=== PATIENT | male | born 1955 | race Caucasian/White ===

== ENCOUNTER 2017-01-18 19:47 | Observation (INO) | payer BC ==
[2017-01-18] MEDS ORDERED: ONDANSETRON 4 MG/2 ML VIAL IVP STA (20:37)
[2017-01-18] MEDS ORDERED: MORPHINE SULFATE 2 MG/ML SYRINGE IVP STA (20:37)
[2017-01-18] MEDS ORDERED: SODIUM CHLORIDE 0.9% 1,000 ML IV STA (20:37)
[2017-01-18] MEDS ORDERED: NITROGLYCERIN OINT 1 INCH/GM PACKET TOPICAL STA (20:37)
[2017-01-18 20:58] LABS: Basophils % (A) 0 %; CH 35.1; CHCM 34.5; Eosinophils # (A) 0.2 k/uL (0-0.7); Eosinophils % (A) 2 %; HDW 2.68; HGB 13.1 gm/dL (13.0-17.5); Luc # (Auto) 0.25; Luc % (Auto) 2; Lymphocytes # (A) 1.2 k/uL (1.0-4.8); Lymphocytes % (A) 11 %; MCH 34.2 pg (25.0-35.0); MCHC 33.6 g/dL (31.0-37.0); Macrocytosis Slight; Mean Platelet Volume 7.2; Monocytes # (A) 0.4 k/uL (0-1.0); Monocytes % (A) 4 %; Neutrophils # (A) 8.5 k/uL (1.3-7.7); Neutrophils % (A) 80 %; RBC 3.82 m/uL (4.30-5.90); RDW 12.6 % (11.5-15.5); WBC 10.6 k/uL (3.8-10.6); WBC (Perox) 11.08
[2017-01-18 21:06] LABS: Partial Thromboplastin Time 24.3 sec (22.0-30.0)
[2017-01-18 21:08] LABS: ALT 41 U/L (21-72); AST 22 U/L (17-59); Alkaline Phosphatase 73 U/L (38-126); Amylase 48 U/L (30-110); Anion Gap 12 mmol/L; Blood Urea Nitrogen 17 mg/dL (9-20); Calcium 9.6 mg/dL (8.4-10.2); Carbon Dioxide 23 mmol/L (22-30); Chloride 104 mmol/L (98-107); Glucose 136 mg/dL (74-99); Magnesium 2.1 mg/dL (1.6-2.3); Non-African American GFR(MDRD) >60 (>60 ml/min/1.73 sqM); Potassium 4.5 mmol/L (3.5-5.1); Sodium 139 mmol/L (137-145); Total Bilirubin 0.7 mg/dL (0.2-1.3); Total Protein 7.2 g/dL (6.3-8.2)
[2017-01-18 21:18] LABS: Creatine Kinase 104 U/L (55-170)
--- NOTE | 2017-01-18 21:19 | XR ---
EXAMINATION TYPE: XR chest 2V DATE OF EXAM: 01/18/2017 9:15 PM COMPARISON: NONE HISTORY: Chest pain TECHNIQUE: Frontal and lateral views of the chest are obtained. FINDINGS: Heart and mediastinum are normal. Lungs are clear. Diaphragm is normal. There are chest le ads. Bony thorax is intact. IMPRESSION: Normal chest
[2017-01-18 21:31] LABS: Creatine Kinase MB 1.6 ng/mL (0.0-2.4); Troponin I <0.012 ng/mL (0.000-0.034)
[2017-01-18] MEDS ORDERED: NITROGLYCERIN SL TABS 0.4 MG TAB SUBLINGUAL PRN (23:39)
[2017-01-18] MEDS ORDERED: HEPARIN SODIUM,PORCINE 5,000 UNIT/ML 1 ML VIAL IV ONE (23:39)
--- NOTE | 2017-01-18 23:39 | ED ---
Chest Pain HPI - General Chief Complaint: Chest Pain Stated Complaint: Abd Pain Time Seen by Provider: 01/18/17 19:58 Source: patient Mode of arrival: ambulatory Limitations: no limitations - History of Present Illness Initial Comments: Centered with a chest pain he was in the epigastric area and then he felt chest pain chest pressure he had a cold sweats this started today him a he had a bit of fresh this morning with the chest pain started around 5 PM on arrival to the ER his pain has resolved he said he had some medication given to him by EMS and that helped he denies any peripheral pleuritic component of the pain denies any fever no chills his family history is unremarkable for heart disease he denies any alcohol use only occasionally denies any tobacco use use regularly. Systems are as above except that it's negative - Related Data Home Medications Medication Instructions Recorded Confirmed Acetaminophen-Codeine 300-30mg 1 tab PO Q4H PRN 01/18/17 01/18/17 [Tylenol #3] Ranitidine HCl [Zantac] 75 mg PO DAILY PRN 01/18/17 01/18/17 Simvastatin [Zocor] 20 mg PO DAILY 01/18/17 01/18/17 Allergies Allergy/AdvReac Type Severity Reaction Status Date / Time amoxicillin AdvReac Itching Verified 01/18/17 20:53 Review of Systems ROS Statement: Those systems with pertinent positive or pertinent negative responses have been documented in the HPI. ROS Other: All systems not noted in ROS Statement are negative. Past Medical History Past Medical History: Hyperlipidemia, Hypertension History of Any Multi-Drug Resistant Organisms: None Reported Past Surgical History: Hernia Repair Past Psychological History: No Psychological Hx Reported Smoking Status: Never smoker Past Alcohol Use History: None Reported Past Drug Use History: None Reported General Exam - General Exam Comments Initial Comments: General: The patient is awake and alert, in no distress, and does not appear acutely ill. He does look pale Skin: Skin is warm and dry and no rashes or lesions are noted. Eye: Pupils are equal, round and reactive to light, extra-ocular movements are intact; there is normal conjunctiva bilaterally. Ears, nose, mouth and throat: There are moist mucous membranes and no oral lesions. Neck: The neck is supple, there is no tenderness or JVD. Cardiovascular: There is a regular rate and rhythm. No murmur, rub or gallop is appreciated. Respiratory: To auscultation bilateral, no wheezing no rhonchi no distress respiratory wesley noticed Gastrointestinal: Soft, non-distended, non-tender abdomen without masses or organomegaly noted. There is no rebound or guarding present. Bowel sounds are unremarkable. Back: There is no tenderness to palpation in the midline. There is no obvious deformity. Musculoskeletal: Normal ROM, no tenderness, There is no pedal edema. There is no calf tenderness or swelling. No cords were appreciated. Neurological: CN II-XII intact, Cranial nerves III through XII are intact. There are no obvious motor or sensory deficits. Coordination appears grossly intact. Speech is normal. Psychiatric: Cooperative, appropriate mood & affect, normal judgment. Limitations: no limitations Course Vital Signs 01/18/17 01/18/17 01/18/17 19:48 20:57 21:50 Temperature 97.5 F L 97.9 F Pulse Rate 74 64 74 Respiratory 18 18 18 Rate Blood Pressure 187/92 161/97 157/90 O2 Sat by Pulse 100 99 100 Oximetry 01/18/17 22:00 Temperature Pulse Rate 68 Respiratory 16 Rate Blood Pressure 152/83 O2 Sat by Pulse 99 Oximetry Him EKG shows ventricular rate is 67 MI interval is 162 QRS duration is 88 QT/ QTc is 420/443 notice a T-wave inversion in leads free no ST elevation or ST depression noticed in the other leads Critical Care Time Total Critical Care Time: 35 Critical Care Time: Considering his age and numb risk factors he was watched in the ER though his troponin chest x-ray looks unremarkable considering his age I plan to put him in the hospital for serial cardiac markers his blood pressure was quite elevated and this is also had some increased risk factors once blood pressure is better when heparinize him, will consult cardiology for further evaluation and management was discussed with the patient and he is agreeable to the Disposition Clinical Impression: Chest pain, Hypertension Disposition: ADMITTED IP TO THIS HOSP Condition: Good
[2017-01-18] MEDS ORDERED: FAMOTIDINE 20 MG TAB PO PRN (23:43)
[2017-01-18] MEDS ORDERED: Acetaminophen-Codeine 300-30mg TAB PO PRN (23:43)
[2017-01-18] MEDS ORDERED: HEPARIN SODIUM,PORCINE/D5W PMX 25,000 UNIT in DEXTROSE/WATER 1 500ML.BAG IV SCH (23:45)
[2017-01-19 02:36] LABS: Creatine Kinase 277 U/L (55-170)
[2017-01-19 02:49] LABS: Creatine Kinase MB 1.6 ng/mL (0.0-2.4); Troponin I <0.012 ng/mL (0.000-0.034)
[2017-01-19 08:34] LABS: Cholesterol 151 mg/dL (<200); HDL Cholesterol 35 mg/dL (40-60); Triglycerides 148 mg/dL (<150)
[2017-01-19 08:57] LABS: Creatine Kinase 63 U/L (55-170)
[2017-01-19] MEDS ORDERED: ATORVASTATIN 80 MG TAB PO SCH (09:00)
[2017-01-19] MEDS ORDERED: ASPIRIN 325 MG TAB PO SCH (09:00)
[2017-01-19 09:08] LABS: Creatine Kinase MB 0.9 ng/mL (0.0-2.4); Troponin I <0.012 ng/mL (0.000-0.034)
--- NOTE | 2017-01-19 09:24 | P.CRDCN ---
History of Present Illness Consult date: 01/19/17 Chief complaint: Chest pain History of present illness: This is a pleasant 61-year-old gentleman with a past medical history significant for dyslipidemia presented to the emergency room complaining of chest discomfort. He was in his usual state of health until yesterday when he woke up complaining of pain in the epigastric area then started experiencing chest pressure associated with cold sweat without any shortness of breath or dizziness or lightheadedness or nausea or syncope. The EKG showed sinus rhythm without any significant ischemic changes. The cardiac enzymes were checked and came in to be unremarkable. He is not aware of any prior history of coronary artery disease and never seen any cyber policy and strategy planner in the past. The patient does not smoke or drink alcohol. Past Medical History Past Medical History: GERD/Reflux, Hyperlipidemia, Hypertension History of Any Multi-Drug Resistant Organisms: None Reported Past Surgical History: Hernia Repair Additional Past Surgical History / Comment(s): colonoscopy-12 years ago, inguinal hernia repair x2 Past Anesthesia/Blood Transfusion Reactions: Previous Problems w/ Anesthesia, Postoperative Nausea & Vomiting (PONV) Additional Past Anesthesia/Blood Transfusion Reaction / Comment(s): difficult coming out Past Psychological History: No Psychological Hx Reported Smoking Status: Never smoker Past Alcohol Use History: None Reported Past Drug Use History: None Reported - Past Family History Mother Family Medical History: Diabetes Mellitus Father Family Medical History: Dementia, Hyperlipidemia Medications and Allergies Home Medications Medication Instructions Recorded Confirmed Type Acetaminophen-Codeine 300-30mg 1 tab PO Q4H PRN 01/18/17 01/19/17 History [Tylenol #3] Ranitidine HCl [Zantac] 75 mg PO DAILY PRN 01/18/17 01/19/17 History Simvastatin [Zocor] 20 mg PO DAILY 01/18/17 01/19/17 History Allergies Allergy/AdvReac Type Severity Reaction Status Date / Time amoxicillin AdvReac Itching Verified 01/19/17 01:14 Physical Exam Vitals: Vital Signs Temp Pulse Pulse Resp BP BP Pulse Ox 01/19/17 07:37 99.2 F 77 18 107/53 94 L 01/19/17 04:00 98.9 F 81 16 106/57 92 L 01/19/17 00:59 98.5 F 68 16 127/67 96 01/19/17 00:18 67 16 111/52 98 Intake and Output 01/18/17 01/19/17 01/19/17 22:59 06:59 14:59 Intake Total 960 Balance 960 Intake: Intake, IV Titration 960 Amount Heparin Sodium,Porcine/ 160 D5w Pmx 25,000 unit In Dextrose/Water 1 500ml. bag @ 10.5 UNITS/KG/HR 20 mls/hr IV .Q24H JAMI Rx#: [id number] Sodium Chloride 0.9% 1, 800 000 ml @ 100 mls/hr IV . Q10H STA Rx#:[id number] Other: Voiding Method Toilet # Voids 1 Weight 97.8 kg - Constitutional General appearance: no acute distress - Respiratory Respiratory: bilateral: CTA - Cardiovascular Rhythm: regular Heart sounds: normal: S1, S2 Results 01/18/17 20:20 01/18/17 20:20 Cardiac Enzymes 01/19/17 01/19/17 Range/Units 02:02 07:32 CK-MB (CK-2) 1.6 0.9 (0.0-2.4) ng/mL Troponin I <0.012 <0.012 (0.000-0.034) ng/mL Coagulation 01/19/17 Range/Units 07:32 APTT 26.5 (22.0-30.0) sec Lipids 01/19/17 Range/Units 07:32 Triglycerides 148 (<150) mg/dL Cholesterol 151 (<200) mg/dL HDL Cholesterol 35 L (40-60) mg/dL Current Medications Generic Name Dose Route Start Last Admin Trade Name Freq PRN Reason Stop Dose Admin Acetaminophen/Codeine Phosphate 1 each 01/18/17 23:43 Tylenol #3 PO Q4H PRN Pain Aspirin 325 mg 01/19/17 09:00 Aspirin PO DAILY [facility] Atorvastatin Calcium 80 mg 01/19/17 09:00 Lipitor PO DAILY [facility] Famotidine 20 mg 01/18/17 23:43 Pepcid PO DAILY PRN Heartburn Heparin Sodium/Dextrose 25,000 500 mls @ 20 mls/hr 01/18/17 23:45 01/18/17 23 :58 unit/ IV Solution IV 10.49 units/kg/hr .Q24H JAMI 20 mls/hr Protocol Administration 10.5 UNITS/KG/HR Nitroglycerin 0.4 mg 01/18/17 23:39 Nitrostat SUBLINGUAL Q5M PRN Chest Pain Intake and Output 01/18/17 01/19/17 01/19/17 22:59 06:59 14:59 Intake Total 960 Balance 960 Intake: Intake, IV Titration 960 Amount Heparin Sodium,Porcine/ 160 D5w Pmx 25,000 unit In Dextrose/Water 1 500ml. bag @ 10.5 UNITS/KG/HR 20 mls/hr IV .Q24H JAMI Rx#: [id number] Sodium Chloride 0.9% 1, 800 000 ml @ 100 mls/hr IV . Q10H STA Rx#:[id number] Other: Voiding Method Toilet # Voids 1 Weight 97.8 kg Assessment and Plan Plan: Assessment #1 chest discomfort #2 dyslipidemia Plan #1 the patient was ruled out for acute coronary event #2 proceeding with a stress test
[2017-01-19 11:34] VITALS: BP 103/62; PULSE 81; RESP 16; TEMP 99.3
--- NOTE | 2017-01-19 12:43 | P.HPIM ---
History of Present Illness H&P Date: 01/19/17 Chief Complaint: Chest discomfort The is a medical H&P and discharge summary combined: Patient is a 61-year-old male, patient of Dr. Nadeem Youngblood in the outpatient setting, with medical history significant for GERD, hyperlipidemia, and hypertension. Patient states he was recently treated for a dental abscess with tooth extraction and finished amoxicillin 2 days ago. Patient states he was taken a nap and woke up with epigastric discomfort. Patient denies eating food recently prior to laying down. Patient states he took some Zantac without relief. Patient reports that the epigastric pain then started to feel like a pressure that radiated to his back associated with some nausea and cold sweats. Patient denies similar symptoms in past. No history of fevers, recent sick contacts, vomiting, shortness of breath, abdominal pain, urinary discomfort, constipation or diarrhea. No history of leg swelling. Patient does state that he noticed a generalized rash after finished amoxicillin and didn't take his last antibiotic pill yesterday. Patient states that it was itching but currently denies itching. Chest x-ray with no acute cardiopulmonary process. EKG without ischemic changes. Troponins negative 3. Afebrile. No evidence of leukocytosis. Patient was treated with morphine and nitroglycerin paste and started on IV heparin with admission to observation unit with consult to cardiology. Upon examination, patient denies chills, fevers, nausea, vomiting , chest pain, lightheadedness, epigastric discomfort, or abdominal pain. Patient is currently scheduled for a stress test. Past Medical History Past Medical History: GERD/Reflux, Hyperlipidemia, Hypertension Additional Past Medical History / Comment(s): Dental abscess to tooth #19 treated with amoxicillin and subsequent dental extraction in December 2016 History of Any Multi-Drug Resistant Organisms: None Reported Past Surgical History: Hernia Repair Additional Past Surgical History / Comment(s): colonoscopy-12 years ago, inguinal hernia repair x2 Past Anesthesia/Blood Transfusion Reactions: Previous Problems w/ Anesthesia, Postoperative Nausea & Vomiting (PONV) Additional Past Anesthesia/Blood Transfusion Reaction / Comment(s): difficult coming out Past Psychological History: No Psychological Hx Reported Smoking Status: Never smoker Past Alcohol Use History: None Reported Past Drug Use History: None Reported - Past Family History Mother Family Medical History: Diabetes Mellitus Father Family Medical History: Dementia, Hyperlipidemia Medications and Allergies Home Medications Medication Instructions Recorded Confirmed Type Acetaminophen-Codeine 300-30mg 1 tab PO Q4H PRN 01/18/17 01/19/17 History [Tylenol #3] Ranitidine HCl [Zantac] 75 mg PO DAILY PRN 01/18/17 01/19/17 History Simvastatin [Zocor] 20 mg PO DAILY 01/18/17 01/19/17 History Allergies Allergy/AdvReac Type Severity Reaction Status Date / Time amoxicillin AdvReac Itching Verified 01/19/17 01:14 Physical Exam Vitals: Vital Signs Temp Pulse Pulse Resp BP BP Pulse Ox 01/19/17 11:33 99.3 F 81 16 103/62 95 01/19/17 07:37 99.2 F 77 18 107/53 94 L 01/19/17 04:00 98.9 F 81 16 106/57 92 L 01/19/17 00:59 98.5 F 68 16 127/67 96 01/19/17 00:18 67 16 111/52 98 Intake and Output 01/18/17 01/19/17 01/19/17 22:59 06:59 14:59 Intake Total 960 Balance 960 Intake: Intake, IV Titration 960 Amount Heparin Sodium,Porcine/ 160 D5w Pmx 25,000 unit In Dextrose/Water 1 500ml. bag @ 10.5 UNITS/KG/HR 20 mls/hr IV .Q24H JAMI Rx#: [id number] Sodium Chloride 0.9% 1, 800 000 ml @ 100 mls/hr IV . Q10H STA Rx#:[id number] Other: Voiding Method Toilet # Voids 1 Weight 97.8 kg GENERAL: Pt awake and alert, well-appearing, well-nourished, and in no acute distress. HEAD: Atraumatic, normocephalic. EYES: Pupils equal, round, and reactive to light, extraocular movements intact, sclera anicteric, conjunctiva are normal. ENT: Moist mucous membranes. Tongue smooth, pink, no lesions, protrudes in midline. NECK:Normal range of motion, supple without lymphadenopathy or JVD. LUNGS: Breath sounds clear to auscultation bilaterally. No wheezes, rales, or rhonchi. HEART: Heart S1, S2, no S3 or S4. Regular rate and rhythm. No murmurs, rubs or gallops. ABDOMEN: Soft, obese, nontender, nondistended, normoactive bowel sounds. No guarding, no rebound. No masses or organomegaly appreciated. EXTREMITIES: 2+ peripheral pulses. No edema, clubbing or cyanosis. No calf tenderness. NEUROLOGICAL: Pt oriented x 3. Cranial nerves II through XII grossly intact. Strength and sensation grossly intact. PSYCH: Normal mood, normal affect. SKIN: Warm, dry, intact. Normal turgor. Generalized papular rash noted. Results CBC & Chem 7: 01/18/17 20:20 01/18/17 20:20 Labs: Abnormal Lab Results - Last 24 Hours (Table) 01/19/17 01/19/17 Range/Units 02:02 07:32 Total Creatine Kinase 277 H (55-170) U/L HDL Cholesterol 35 L (40-60) mg/dL Chest x-ray: report reviewed Thrombosis Risk Factor Assmnt - DVT/VTE Prophylaxis DVT/VTE Prophylaxis: Low risk, early ambulation encouraged - Choose All That Apply Each Factor Represents 1 point: Obesity (BMI >25) Each Risk Factor Represents 2 Points: Age 61-74 years Thrombosis Risk Factor Assessment Total Risk Factor Score: 3 Thrombosis Risk Factor Assessment Level: Moderate Risk Assessment and Plan Plan: Impression and plan: 1. Chest discomfort, present on admission. EKG without ischemic changes. Troponin negative 3. Patient awaiting stress test. Cardiology is following patient. 2. History of GERD. 3. Hypertension. 4. History of recent dental abscess with tooth extraction treated with amoxicillin. 5. Generalized papular rash, suspect drug induced. Plan: Continue to monitor patient. Patient is awaiting stress test. Continue current medications. Continue to follow with cardiology service. Possible discharge home later today if stress test is negative with follow-up in the outpatient setting. The above impression and plan have been discussed and directed by Dr. Youngblood. Glynn ORTIZ acting as scribe for Dr. Youngblood.
--- NOTE | 2017-01-19 14:52 | EST ---
DATE OF SERVICE: 01/18/2017 AGE: 61Y SEX: M HT: 71 WT: 215 lbs. Protocol Dylan: Other: Stage: 2 Dur. of Exercise: 8:16 *Heart Rate Blood Pressure *Rest: 83 Rest: 130/61 * *Max. Achieved: 147 Maximum BP: 164/70 85% PMHR: 134 100% PMHR: 158 *METS: 9.3 INDICATIONS: MEDICATIONS: Baseline rhythm is sinus mechanism, rate of 83, left axis deviation. Baseline blood pressure 130/61 mmHg. Patient exercised on Dylan protocol for 8 minutes 16 seconds reaching a peak rate of 147 beats per minute, which is equal to 93% maximum predicted heart rate; peak blood pressure 154/67 mmHg. Test was terminated because of fatigue. There was no chest pain. Electrocardiograph monitoring revealed rare PVCs. There is no evidence of diagnostic ischemic ST deviation. CONCLUSION: 1. Average exercise tolerance with occasional premature ventricular contractions. 2. Normal electrocardiograph response to exercise with no evidence of exercise-induced ischemia.
== END 2017-01-19 15:18 | disposition home or self-care (01) ==
LOC: EC 19:47 → 3OBS 23:40
PROVIDERS: ADMIT Family Medicine; ATTEND Family Medicine
DX: R07.89 Other chest pain (principal); K21.9 Gastro-esophageal reflux disease without esophagitis; E78.5 Hyperlipidemia, unspecified; I10 Essential (primary) hypertension; Z83.3 Family history of diabetes mellitus; Z79.899 Other long term (current) drug therapy; R21 Rash and other nonspecific skin eruption
CPT/HCPCS: 96375 ×4; 96361 ×4; 96376 ×2; 96374 ×2; 99291 ×2; 36415; 93005; 93017; 80061; 80053; 82150; 82550 ×2; 82553 ×2; 83690; 83735; 84484 ×2; 85025; 85610; 85730 ×2; 71020; G0378 ×2; J1644 ×2; J2405; J2270; 96365; 96366

== ENCOUNTER 2019-03-05 17:14 | Emergency (ER) | payer BC, OTHER ==
[2019-03-05 17:19] VITALS: TEMP 97.9
[2019-03-05] MEDS ORDERED: LIDOCAINE 1% INJ 10MG/ML (20 ML MDV) SQ ONE (17:25)
[2019-03-05] MEDS ORDERED: DIPH,PERTUS(ACELL)TETVAC-LF 0.5 ML VIAL IM ONE (17:25)
--- NOTE | 2019-03-05 17:27 | ED ---
General Adult HPI - General Chief complaint: Wound/Laceration Stated complaint: R Hand Laceration Time Seen by Provider: 03/05/19 17:20 Source: patient, RN notes reviewed Mode of arrival: ambulatory Limitations: no limitations - History of Present Illness Initial comments: 63-year-old male With a past medical history of hypertension, hyperlipidemia, GERD presents to the emergency department for a chief complaint of laceration of the right hand. Patient states that this occurred about one hour prior to arrival. Patient states that he was using an angle platen grinder when he accidentally neck to his hand. Denies any difficulty moving his fingers or any loss of sensation in the right hand. States tetanus is not up-to-date.Patient has no other complaints at this time including shortness of breath, chest pain, abdominal pain, nausea or vomiting, headache, or visual changes. - Related Data Home Medications Medication Instructions Recorded Confirmed Simvastatin [Zocor] 20 mg PO DAILY 01/18/17 01/19/17 Escitalopram Oxalate [Lexapro] 10 mg PO HS 03/05/19 03/05/19 Allergies Allergy/AdvReac Type Severity Reaction Status Date / Time amoxicillin Allergy Rash/Hives Verified 03/05/19 18:08 Review of Systems ROS Statement: Those systems with pertinent positive or pertinent negative responses have been documented in the HPI. ROS Other: All systems not noted in ROS Statement are negative. Past Medical History Past Medical History: GERD/Reflux, Hyperlipidemia, Hypertension Additional Past Medical History / Comment(s): Dental abscess to tooth #19 treated with amoxicillin and subsequent dental extraction in December 2016 History of Any Multi-Drug Resistant Organisms: None Reported Past Surgical History: Hernia Repair Additional Past Surgical History / Comment(s): colonoscopy-12 years ago, inguinal hernia repair x2 Past Anesthesia/Blood Transfusion Reactions: Previous Problems w/ Anesthesia, Postoperative Nausea & Vomiting (PONV) Additional Past Anesthesia/Blood Transfusion Reaction / Comment(s): difficult coming out Past Psychological History: No Psychological Hx Reported Smoking Status: Never smoker Past Alcohol Use History: None Reported Past Drug Use History: None Reported - Past Family History Mother Family Medical History: Diabetes Mellitus Father Family Medical History: Dementia, Hyperlipidemia General Exam Limitations: no limitations General appearance: alert, in no apparent distress Head exam: Present: atraumatic, normocephalic, normal inspection Eye exam: Present: normal appearance, PERRL, EOMI. Absent: scleral icterus, conjunctival injection, periorbital swelling ENT exam: Present: normal exam, mucous membranes moist Neck exam: Present: normal inspection, full ROM. Absent: tenderness, meningismus, lymphadenopathy Respiratory exam: Present: normal lung sounds bilaterally. Absent: respiratory distress, wheezes, rales, rhonchi, stridor Cardiovascular Exam: Present: regular rate, normal rhythm, normal heart sounds. Absent: systolic murmur, diastolic murmur, rubs, gallop, clicks Extremities exam: Present: full ROM (Full range of motion of the right hand including all digits), normal capillary refill (Capillary refill less than 2 seconds, radial pulse 2+), other (Patient is a 3 cm laceration noted to the radial aspect of the second distal metacarpal of the right head. No evident foreign bodies. No evidence of injury to deep structures.) Neurological exam: Present: alert, oriented X3, CN II-XII intact Psychiatric exam: Present: normal affect, normal mood Course Vital Signs 03/05/19 17:16 Temperature 97.9 F Pulse Rate 84 Respiratory 16 Rate Blood Pressure 190/94 O2 Sat by Pulse 95 Oximetry Procedures - Laceration Laceration #1 Consent Obtained: verbal consent Indication: laceration Site: hand Size (cm): 3 Description: linear Depth: simple, single layer Anesthetic Used: lidocaine 1% Anesthesia Technique: local infiltration Amount (mls): 5 Pre-repair: wound explored, irrigated extensively (with 1 L NS and saline press ure irrigation), deep structures intact, wound margins revised Size of Sutures: 5-0 Number of Sutures: 5 Technique: simple, interrupted Patient Tolerated Procedure: well, no complications Medical Decision Making - Medical Decision Making 63-year-old male presents for laceration of the right hand with an angle platen grinder about 1 hour prior to arrival. Tetanus updated. On exam patient is a 3 cm laceration over the radial aspect of the second MCP joints of the right hand. Full range of motion. No evidence of foreign bodies. Wound was irrigated thoroughly and sutured with 5 simple interrupted sutures. X-ray did reveal a possible distal second metacarpal fracture. Therefore patient was started on Ancef. Patient will be given prescription for Keflex. He was put in a splint has well. He will follow up with orthopedics for possible open fracture. He will return here if he has any worsening symptoms. Disposition Clinical Impression: Laceration, Fracture of finger, proximal phalanx, right, open Disposition: HOME SELF-CARE Condition: Good Instructions (If sedation given, give patient instructions): Laceration (ED), Care For Your Stitches (ED), Finger Fracture (ED) Additional Instructions: Please take Tylenol for pain. Rest ice and elevate the right hand. Keep the area clean. Watch for signs of infection such as spreading or streaking redness, drainage or fever and return if these occur. Return in 7-10 days to have sutures removed. Follow up with orthopedics in one to 2 days for possible open fracture. Is patient prescribed a controlled substance at d/c from ED?: No Referrals: Nadeem Youngblood DO [Primary Care Provider] - 1-2 days Nazario Lawton MD [STAFF PHYSICIAN] - 1-2 days Time of Disposition: 18:21
--- NOTE | 2019-03-05 17:45 | XR ---
EXAMINATION TYPE: XR hand complete RT DATE OF EXAM: 03/05/2019 COMPARISON: NONE HISTORY: Laceration second MP joint TECHNIQUE: 3 views FINDINGS: The metacarpals appear intact. There is possible hairline fracture of the head of the secon d metacarpal on one view. There is no dislocation. IMPRESSION: Possible distal second metacarpal fracture. No foreign bodies seen.
[2019-03-05] MEDS ORDERED: ceFAZolin 1,000 MG VIAL IM STA (18:09)
[2019-03-05] MEDS ORDERED: SODIUM CHLORIDE 0.9% IRRIG 1,000 ML BTL IRRIGATION STA (18:23)
[2019-03-05 18:40] VITALS: BP 123/81; PULSE 65; RESP 18
== END 2019-03-05 18:40 | disposition home or self-care (01) ==
LOC: EC 17:14
DX: S62.610B Displaced fracture of proximal phalanx of right index finger, initial encounter for open fracture (principal); E78.5 Hyperlipidemia, unspecified; I10 Essential (primary) hypertension; Z88.0 Allergy status to penicillin; Z79.899 Other long term (current) drug therapy; Z23 Encounter for immunization; W29.0XXA Contact with powered kitchen appliance, initial encounter; Y93.89 Activity, other specified
CPT/HCPCS: 73130; 90715; 99283; 90471; 96372; 12002; J0690; J2001

== ENCOUNTER 2021-10-13 08:15 | Day surgery (SDC) | payer MEDICARE ==
[2021-10-11 18:17] VITALS: BMI 27.8
[~2021-10-13 08:15] MED LIST: LACTATED RINGERS 1,000 ML IV SCH; LIDOCAINE 1% (10MG/ML) FOR IV START INTRADERMA PRN
[2021-10-13 08:45] VITALS: TEMP 97.3
--- NOTE | 2021-10-13 09:39 | P.GSHP ---
History of Present Illness H&P Date: 10/13/21 Chief Complaint: Screening colonoscopy 's is a 66-year-old male referred from Dr. Nadeem Pace. Patient presents today for screening colonoscopy. She denies any significant GI complaints. Past Medical History Past Medical History: GERD/Reflux, Hyperlipidemia, Hypertension Additional Past Medical History / Comment(s): Dental abscess to tooth #19 treated with amoxicillin and subsequent dental extraction in December 2016 History of Any Multi-Drug Resistant Organisms: None Reported Past Surgical History: Hernia Repair Additional Past Surgical History / Comment(s): colonoscopy-, inguinal hernia repair x2, pain clinic injections Past Anesthesia/Blood Transfusion Reactions: Previous Problems w/ Anesthesia, Postoperative Nausea & Vomiting (PONV) Additional Past Anesthesia/Blood Transfusion Reaction / Comment(s): difficult coming out-took longer to wake up Smoking Status: Former smoker - Past Family History Mother Family Medical History: Diabetes Mellitus Father Family Medical History: Dementia, Hyperlipidemia Medications and Allergies Home Medications Medication Instructions Recorded Confirmed Type Simvastatin [Zocor] 20 mg PO HS 01/18/17 10/13/21 History Escitalopram Oxalate [Lexapro] 10 mg PO HS 10/11/21 10/13/21 History Allergies Allergy/AdvReac Type Severity Reaction Status Date / Time amoxicillin Allergy Rash/Hives Verified 10/11/21 17:57 Surgical - Exam Vital Signs Temp Pulse Resp BP Pulse Ox 97.3 F L 61 16 155/83 98 10/13/21 08:41 10/13/21 08:41 10/13/21 08:41 10/13/21 08:41 10/13/21 08:41 - General well developed, well nourished, no distress - Eyes PERRL - ENT normal pinna - Neck no masses - Respiratory normal expansion - Cardiovascular Rhythm: regular - Abdomen Abdomen: soft, non tender Assessment and Plan Assessment: We'll perform screening colonoscopy.
[2021-10-13] MEDS ORDERED: PROPOFOL 10 MG/ML 20 ML VIAL IV ONE (09:42)
--- NOTE | 2021-10-13 10:06 | P.OP ---
Date of Procedure: 10/13/21 Preoperative Diagnosis: Screening colonoscopy Postoperative Diagnosis: Diverticulosis Left colon polyp Procedure(s) Performed: Colonoscopy Anesthesia: MAC Surgeon: Cornelius Miller Pathology: other (Left colon polyp) Condition: stable Disposition: PACU Description of Procedure: Patient's placed on the endoscopy table in the lateral position. He received IV sedation. Digital rectal exam was performed which revealed no abnormalities. Flexible colonoscope was then placed patient anus passed throughout the entire colon. Ileocecal valves were lysed. The cecum, ascending and transverse colon appeared normal. In the descending colon there was moderate diverticulosis. There was a polyp seen was removed a combination of the snare and a forcep. Scope was brought back and sigmoid colon and more diverticular changes were seen. Scope was brought back the rectum and this appeared normal. Scope wit hdrawn for patient.
[2021-10-13 10:11] VITALS: BP 121/72; PULSE 65; RESP 20
== END 2021-10-13 10:41 | disposition home or self-care (01) ==
LOC: ORWHC2ENDO 08:15
PROVIDERS: ATTEND Surgery
DX: Z12.11 Encounter for screening for malignant neoplasm of colon (principal); D12.4 Benign neoplasm of descending colon; K57.30 Diverticulosis of large intestine without perforation or abscess without bleeding; K21.9 Gastro-esophageal reflux disease without esophagitis; E78.5 Hyperlipidemia, unspecified; I10 Essential (primary) hypertension; Z98.890 Other specified postprocedural states; Z87.891 Personal history of nicotine dependence; Z83.3 Family history of diabetes mellitus; Z81.8 Family history of other mental and behavioral disorders; Z83.438 Family history of other disorder of lipoprotein metabolism and other lipidemia; Z79.899 Other long term (current) drug therapy; Z88.0 Allergy status to penicillin; F41.9 Anxiety disorder, unspecified
CPT/HCPCS: 88305; 45385; J2704; 45380

== ENCOUNTER 2021-10-28 10:32 | Emergency (ER) | payer MEDICARE ==
[2021-10-28 10:38] VITALS: TEMP 98.5
[2021-10-28] MEDS ORDERED: BACITRACIN OINT 1 EACH PACKET TOPICAL ONE (11:12)
[2021-10-28] MEDS ORDERED: LIDOCAINE 1% INJ 10MG/ML (20 ML MDV) SQ ONE (11:12)
[2021-10-28] MEDS ORDERED: IBUPROFEN 600 MG TAB PO STA (11:12)
--- NOTE | 2021-10-28 11:28 | ED ---
General Adult HPI - General Chief complaint: Wound/Laceration Stated complaint: calf lac Time Seen by Provider: 10/28/21 10:54 Source: patient, RN notes reviewed Mode of arrival: wheelchair Limitations: no limitations - History of Present Illness Initial comments: 76-year-old male presents to the emergency department for evaluation of laceration to the left calf. 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 Patient states bleeding was controlled with direct pressure. Denies loss of sensation or range of motion. Is able to ambulate without difficulty. Confirms that tetanus status is up to date. Denies any further injuries. - Related Data Home Medications Medication Instructions Recorded Confirmed Simvastatin [Zocor] 20 mg PO HS 01/18/17 10/13/21 Escitalopram Oxalate [Lexapro] 10 mg PO HS 10/11/21 10/13/21 Previous Rx's Medication Instructions Recorded Cephalexin [Keflex] 500 mg PO BID 5 Days #10 cap 10/28/21 Allergies Allergy/AdvReac Type Severity Reaction Status Date / Time amoxicillin Allergy Rash/Hives Verified 10/28/21 10:34 Review of Systems ROS Statement: Those systems with pertinent positive or pertinent negative responses have been documented in the HPI. ROS Other: All systems not noted in ROS Statement are negative. Past Medical History Past Medical History: GERD/Reflux, Hyperlipidemia, Hypertension Additional Past Medical History / Comment(s): Dental abscess to tooth #19 treated with amoxicillin and subsequent dental extraction in December 2016 History of Any Multi-Drug Resistant Organisms: None Reported Past Surgical History: Hernia Repair Additional Past Surgical History / Comment(s): colonoscopy-, inguinal hernia repair x2, pain clinic injections Past Anesthesia/Blood Transfusion Reactions: Previous Problems w/ Anesthesia, Postoperative Nausea & Vomiting (PONV) Additional Past Anesthesia/Blood Transfusion Reaction / Comment(s): difficult coming out-took longer to wake up Past Psychological History: Anxiety Smoking Status: Former smoker Past Alcohol Use History: None Reported Past Drug Use History: None Reported - Past Family History Mother Family Medical History: Diabetes Mellitus Father Family Medical History: Dementia, Hyperlipidemia General Exam Limitations: no limitations (Well-developed, well-nourished male in no acute dis tress. Initial temperature 98.5, pulse 75, respirations 18, blood pressure 134/77, pulse ox 97% on room air.) General appearance: alert, in no apparent distress Respiratory exam: Present: normal lung sounds bilaterally. Absent: respiratory distress, wheezes, rales, rhonchi, stridor Cardiovascular Exam: Present: regular rate, normal rhythm, normal heart sounds. Absent: systolic murmur, diastolic murmur, rubs, gallop, clicks GI/Abdominal exam: Present: soft, normal bowel sounds. Absent: distended, tenderness, guarding, rebound, rigid Left Knee exam: Present: normal inspection, full ROM. Absent: tenderness, swelling, deformity Lower Leg exam: Present: full ROM, tenderness, laceration (5 cm laceration to the medial aspect of the left lower extremity; bleeding controlled. No exposed tendon or musculature. Range of motion intact. No loss of sensation.) Ankle exam: Present: normal inspection, full ROM. Absent: tenderness, swelling Foot/Toe exam: Present: normal inspection, full ROM. Absent: tenderness, swelling Neurovascular tendon exam: Present: no vascular compromise. Absent: pulse deficit, abnormal cap refill, motor deficit, sensory deficit, tendon deficit Neurological exam: Present: alert, oriented X3, CN II-XII intact Psychiatric exam: Present: normal affect, normal mood Skin exam: Present: warm, dry, normal color Course Vital Signs 10/28/21 10/28/21 10:34 12:33 Temperature 98.5 F Pulse Rate 75 80 Respiratory 18 16 Rate Blood Pressure 134/77 139/74 O2 Sat by Pulse 97 96 Oximetry Procedures - Laceration Laceration #1 Consent Obtained: verbal consent Indication: laceration Site: lower extremity (left ) Size (cm): 5 Description: linear Depth: simple, single layer Anesthetic Used: lidocaine 1% Anesthesia Technique: local infiltration Amount (mls): 5 Type of Sutures: nylon Size of Sutures: 4-0 Number of Sutures: 7 Technique: simple, interrupted Patient Tolerated Procedure: well, no complications Additional Comments: Wound thoroughly cleansed and irrigated. 7 simple interrupted sutures closed wound with good approximation. Bacitracin dressing applied. Wound care reviewed at length with patient. Instructed to have sutures removed in 7-10 days. Encouraged to see primary care provider for recheck on Sunday. He verbalizes understanding and agrees with this plan. Medical Decision Making - Medical Decision Making This is a 66-year-old male with a past medical history of hypertension, high cholesterol and GERD, who presents to the emergency department for evaluation and repair of a laceration to the left lower extremity. Upon exam, patient is well-appearing and in no acute distress. Bleeding was controlled prior to arrival. Range of motion intact. No loss of sensation. No further injuries. Ambulatory without difficulty. Tetanus status is up to date. X-ray shows no foreign body. Wound was thoroughly cleansed and irrigated and repaired without difficulty. Bacitracin dressing was applied. Wound care was reviewed at length with patient. Instructed to follow up with PCP for wound recheck. Suture removal in 10 days. We will prescribe short course of antibiotic due to mec hanism of injury and potential contamination from angle lens grinder apprentice. Return parameters were discussed in detail. Patient verbalizes understanding and agrees with this plan. Patient's care was discussed with my attending . - Radiology Data Radiology results: report reviewed, image reviewed X-ray of the left tibia and fibula was obtained. Report was reviewed in entirety. Impression per Dr. Kim a soft tissue laceration medial left calf. Disposition Clinical Impression: Laceration of left lower extremity Disposition: HOME SELF-CARE Condition: Stable Instructions (If sedation given, give patient instructions): Care For Your Stitches (ED), Laceration (ED) Additional Instructions: Keep wound clean and dry. Applied bacitracin with daily dressing change after first 24 hours. Monitor carefully for signs of infection as we discussed. Wound recheck in 3 days. Take antibiotic as directed. Follow-up with your PCP or return to the emergency department for suture removal in 10 days. Return to the emergency department for any new, worsening, or concerning symptoms. Prescriptions: Cephalexin [Keflex] 500 mg PO BID 5 Days #10 cap Is patient prescribed a controlled substance at d/c from ED?: No Referrals: Nadeem Youngblood DO [Primary Care Provider] - 1-2 days Time of Disposition: 12:26
--- NOTE | 2021-10-28 11:54 | XR ---
EXAMINATION TYPE: XR tibia fibula LT DATE OF EXAM: 10/28/2021 COMPARISON: NONE HISTORY: Pain TECHNIQUE: Two views are submitted. FINDINGS: The osseous structures are intact. There appears to be air within the posterior soft tissues. Correla te for laceration. No metallic foreign body. Arthropathy of the knee joint. IMPRESSION: 1. Soft tissue laceration medial left calf.
[2021-10-28 12:34] VITALS: BP 139/74; PULSE 80; RESP 16
== END 2021-10-28 12:43 | disposition home or self-care (01) ==
LOC: EC 10:32
DX: S81.812A Laceration without foreign body, left lower leg, initial encounter (principal); I10 Essential (primary) hypertension; E78.5 Hyperlipidemia, unspecified; K21.9 Gastro-esophageal reflux disease without esophagitis; F41.9 Anxiety disorder, unspecified; Z87.891 Personal history of nicotine dependence; Z79.899 Other long term (current) drug therapy; W26.8XXA Contact with other sharp object(s), not elsewhere classified, initial encounter
CPT/HCPCS: 73590; 12002; 99283; J2001